=== PATIENT | male | born 1985 | race Two or more races ===

== ENCOUNTER 2021-02-13 07:06 | Inpatient (IN) | payer MEDICAID, OTHER ==
[~2021-02-13] VITALS: Ht 175.3 cm; Wt 96.0 kg
[2021-02-13 10:20] LABS: Calcium 8.2 mg/dL (8.5-10.1)
[2021-02-13 10:27] LABS: Albumin 3.3 g/dL (3.4-5.0); BUN/Creatinine Ratio 9.2; Bilirubin, Total 0.5 mg/dL (0.2-1.0); Total Protein 7.1 g/dL (6.4-8.2)
[2021-02-13 10:30] LABS: Basophils # (auto) 0 10 ^3/uL (0-0.2); Basophils % (auto) 0.3 % (0.0-2.0); Eosinophils # (auto) 0 10 ^3/uL (0-0.8); Hematocrit 44.3 % (41.0-53.0); Hemoglobin 14.8 g/dL (13.5-17.5); Lymphocytes # (auto) 0.7 10 ^3/uL (0.4-5.4); Lymphocytes % (auto) 11.6 % (10.0-50.0); Mean Corpuscular Hemoglobin 29.8 pg (28.0-32.0); Mean Corpuscular Hgb Conc. 33.3 g/dL (32.0-36.0); Mean Corpuscular Volume 89.4 fL (80.0-100.0); Monocytes # (auto) 0.3 10 ^3/uL (0-1.3); Monocytes % (auto) 4.5 % (0.0-12.0); Neutrophils # (auto) 4.9 10 ^3/uL (1.6-8.6); Neutrophils % (auto) 83.6 % (37.0-80.0); Red Blood Cells 4.95 10^6/uL (4.5-5.90); Red Cell Distribution Width 12.3 % (11.8-14.3); White Blood Cell 5.9 10^3/uL (4.4-10.8)
[2021-02-13] MEDS ORDERED: cefTRIAXone 1GM/50ML D5W 50 ML IV ONE ×2 (10:45→12:00)
[2021-02-13] MEDS ORDERED: AZITHROMYCIN 500MG/ 250ML 250 ML IV ONE (10:45)
[2021-02-13] MEDS ORDERED: DexAMETHasone SOD PHOS 10MG/1ML VIAL INJ IV ONE (10:45)
[2021-02-13] MEDS ORDERED: ACETAMINOPHEN 500 MG TAB PO PRN (11:45)
[2021-02-13] MEDS ORDERED: NITROGLYCERIN 0.4 MG SL TAB SL PRN (11:45)
[2021-02-13] MEDS ORDERED: ALUM & MAG HYDROX-SIMETH LIQ(MAALOX) 30 ML PO PRN (11:45)
[2021-02-13] MEDS ORDERED: ALBUTEROL SULF HFA 90MCG INH 200DOSE IN PRN (11:45)
[2021-02-13] MEDS ORDERED: HYDROcodone-ACET 5/325MG TAB PO PRN (11:45)
[2021-02-13] MEDS ORDERED: ONDANSETRON HCL 4 MG/2 ML VIAL IV PRN (11:45)
[2021-02-13] MEDS ORDERED: LORazepam 0.5 MG TAB PO PRN (11:45)
[2021-02-13] MEDS ORDERED: DOCUSATE SOD 100 MG CAP PO PRN (11:45)
[2021-02-13] MEDS ORDERED: MORPHINE SULFATE INJECTION 2 MG/ML SYRG IV PRN ×2 (11:45)
[2021-02-13] MEDS ORDERED: IOHEXOL 350 MG/ML 100ML IJ ONE (11:47)
[2021-02-13 14:09] VITALS: BP 115/75
[2021-02-13] MEDS: SODIUM CHLORIDE 0.9% 1,000 ML IV SCH (15:11)
[2021-02-13 16:30] VITALS: BP 114/66
[2021-02-13 20:00] VITALS: BP 108/70
[2021-02-13] MEDS: FAMOTIDINE (10MG/ML) 2ML VL IV SCH (21:19)
[2021-02-13] MEDS: ENOXAPARIN SOD 40 MG/0.4 ML SYRINGE SC SCH (21:19)
[2021-02-13 22:00] VITALS: BP 108/70
[2021-02-13] MEDS ORDERED: BUDESONIDE (INHALATION) 180 MCG IH IN SCH (22:00)
[2021-02-14] MEDS: SODIUM CHLORIDE 0.9% 1,000 ML IV SCH (05:25)
[2021-02-14 05:30] VITALS: BP 103/65
[2021-02-14 06:28] LABS: Basophils # (auto) 0 10 ^3/uL (0-0.2); Eosinophils # (auto) 0 10 ^3/uL (0-0.8); Eosinophils % (auto) 0.1 % (0.0-7.0); Hematocrit 43.1 % (41.0-53.0); Hemoglobin 14.4 g/dL (13.5-17.5); Lymphocytes # (auto) 0.6 10 ^3/uL (0.4-5.4); Lymphocytes % (auto) 15.4 % (10.0-50.0); Mean Corpuscular Hemoglobin 29.8 pg (28.0-32.0); Mean Corpuscular Hgb Conc. 33.4 g/dL (32.0-36.0); Mean Corpuscular Volume 89.2 fL (80.0-100.0); Monocytes # (auto) 0.3 10 ^3/uL (0-1.3); Neutrophils # (auto) 2.8 10 ^3/uL (1.6-8.6); Neutrophils % (auto) 76.5 % (37.0-80.0); Nucleated Red Blood Cells % 0.1 %; Red Blood Cells 4.83 10^6/uL (4.5-5.90); Red Cell Distribution Width 12.5 % (11.8-14.3); White Blood Cell 3.7 10^3/uL (4.4-10.8)
[2021-02-14 06:47] LABS: Calcium 8.2 mg/dL (8.5-10.1); Potassium 4.3 mmol/L (3.5-5.1)
[2021-02-14 06:50] LABS: BUN/Creatinine Ratio 14.7
[2021-02-14 06:52] LABS: Bilirubin, Total 0.5 mg/dL (0.2-1.0); Total Protein 6.5 g/dL (6.4-8.2)
[2021-02-14 09:00] VITALS: BP 105/68
[2021-02-14] MEDS: DexAMETHasone SOD PHOS 10MG/1ML VIAL INJ IV SCH (11:16)
[2021-02-14] MEDS: CHOLECALCIFEROL (VITD3) 2,000 UNIT CAP/TAB PO SCH (11:16)
[2021-02-14] MEDS: FAMOTIDINE (10MG/ML) 2ML VL IV SCH ×2 (11:16→21:12)
[2021-02-14] MEDS: AZITHROMYCIN 500MG/ 250ML 250 ML IV SCH (11:16)
[2021-02-14] MEDS: ZINC SULFATE 220mg CAP or TAB PO SCH (11:17)
[2021-02-14] MEDS: ENOXAPARIN SOD 40 MG/0.4 ML SYRINGE SC SCH ×2 (11:22→21:12)
[2021-02-14] MEDS ORDERED: REMDESIVIR PER PHARMACY 0 ML IV SCH (11:30)
[2021-02-14] MEDS ORDERED: BUDESONIDE (INHALATION) 0.5 MG/2 ML NEB NEB ONE (11:30)
[2021-02-14] MEDS: ASCORBIC ACID 1,000 MG TAB PO SCH (11:34)
[2021-02-14 13:00] VITALS: BP 145/74
[2021-02-14] MEDS ORDERED: REMDESIVIR 200 MG in NS 210ml LOADING DOSE ADULT IV ONE (15:00)
[2021-02-14 17:00] VITALS: BP 110/71
[2021-02-14 17:12] LABS: Urine Bacteria NONE SEEN /hpf (None Seen); Urine Blood Negative /uL (Negative); Urine WBC 1 /hpf (0 - 3)
[2021-02-14] MEDS ORDERED: BUDESONIDE (INHALATION) 0.5 MG/2 ML NEB NEB SCH (22:00)
[2021-02-14 22:02] VITALS: BP 106/69
[2021-02-15 05:00] VITALS: BP 109/69
[2021-02-15 07:46] LABS: Basophils # (auto) 0 10 ^3/uL (0-0.2); Basophils % (auto) 0.1 % (0.0-2.0); Eosinophils # (auto) 0 10 ^3/uL (0-0.8); Hematocrit 40.8 % (41.0-53.0); Hemoglobin 13.9 g/dL (13.5-17.5); Lymphocytes # (auto) 1.1 10 ^3/uL (0.4-5.4); Lymphocytes % (auto) 11.9 % (10.0-50.0); Mean Corpuscular Hemoglobin 30.4 pg (28.0-32.0); Mean Corpuscular Hgb Conc. 34.1 g/dL (32.0-36.0); Mean Corpuscular Volume 89.3 fL (80.0-100.0); Monocytes # (auto) 0.7 10 ^3/uL (0-1.3); Neutrophils # (auto) 7.6 10 ^3/uL (1.6-8.6); Nucleated Red Blood Cells % 0.1 %; Red Blood Cells 4.57 10^6/uL (4.5-5.90); Red Cell Distribution Width 12.6 % (11.8-14.3); White Blood Cell 9.4 10^3/uL (4.4-10.8)
[2021-02-15 08:18] LABS: Potassium 4.5 mmol/L (3.5-5.1)
[2021-02-15 08:25] LABS: Albumin 3.1 g/dL (3.4-5.0); BUN/Creatinine Ratio 17.4; Bilirubin, Total 0.5 mg/dL (0.2-1.0); Calcium 8.4 mg/dL (8.5-10.1); Total Protein 6.7 g/dL (6.4-8.2)
[2021-02-15 09:00] VITALS: BP 108/77
[2021-02-15] MEDS ORDERED: SALINE 0.65 % NASAL SPRAY 45ML BOTTLE EACHNOSTRI ONE (10:45)
[2021-02-15] MEDS: AZITHROMYCIN 500MG/ 250ML 250 ML IV SCH (10:58)
[2021-02-15] MEDS: DexAMETHasone SOD PHOS 10MG/1ML VIAL INJ IV SCH (10:58)
[2021-02-15] MEDS: CHOLECALCIFEROL (VITD3) 2,000 UNIT CAP/TAB PO SCH (10:59)
[2021-02-15] MEDS: ASCORBIC ACID 1,000 MG TAB PO SCH (10:59)
[2021-02-15] MEDS: ENOXAPARIN SOD 40 MG/0.4 ML SYRINGE SC SCH ×2 (11:00→21:41)
[2021-02-15] MEDS: ZINC SULFATE 220mg CAP or TAB PO SCH (11:00)
[2021-02-15 13:00] VITALS: BP 128/71
[2021-02-15] MEDS: SALINE 0.65 % NASAL SPRAY 45ML BOTTLE EACHNOSTRI SCH ×3 (14:09→21:41)
[2021-02-15] MEDS: REMDESIVIR 100mg 100 MG in SODIUM CHL 0.9% 230 ML IV SCH (15:17)
[2021-02-15 17:00] VITALS: BP 111/68
[2021-02-15] MEDS: BUDESONIDE (INHALATION) 180 MCG IH IN SCH (19:50)
[2021-02-15 21:30] VITALS: BP 122/76
[2021-02-15] MEDS ORDERED: BUDESONIDE (INHALATION) 0.5 MG/2 ML NEB NEB SCH (22:00)
[2021-02-16] VITALS (7 sets, daily range): BP systolic 104–115; BP diastolic 64–75
[2021-02-16] MEDS: SALINE 0.65 % NASAL SPRAY 45ML BOTTLE EACHNOSTRI SCH ×4 (05:20→22:29)
[2021-02-16 07:31] LABS: Potassium 4.4 mmol/L (3.5-5.1)
[2021-02-16 07:52] LABS: Albumin 3.2 g/dL (3.4-5.0); BUN/Creatinine Ratio 21.8; Bilirubin, Total 0.5 mg/dL (0.2-1.0); Calcium 8.6 mg/dL (8.5-10.1); Total Protein 6.6 g/dL (6.4-8.2)
[2021-02-16] MEDS: DexAMETHasone SOD PHOS 10MG/1ML VIAL INJ IV SCH (09:52)
[2021-02-16] MEDS: CHOLECALCIFEROL (VITD3) 2,000 UNIT CAP/TAB PO SCH (09:53)
[2021-02-16] MEDS: ENOXAPARIN SOD 40 MG/0.4 ML SYRINGE SC SCH ×2 (09:53→22:30)
[2021-02-16] MEDS: ASCORBIC ACID 1,000 MG TAB PO SCH (09:53)
[2021-02-16] MEDS: AZITHROMYCIN 500MG/ 250ML 250 ML IV SCH (09:53)
[2021-02-16] MEDS: ZINC SULFATE 220mg CAP or TAB PO SCH (09:53)
[2021-02-16] MEDS: FAMOTIDINE 20 MG TAB PO SCH (09:54)
[2021-02-16] MEDS: BUDESONIDE (INHALATION) 180 MCG IH IN SCH ×2 (15:32→22:00)
[2021-02-16] MEDS: REMDESIVIR 100mg 100 MG in SODIUM CHL 0.9% 230 ML IV SCH (18:36)
[2021-02-17 05:41] VITALS: BP 110/64
[2021-02-17] MEDS: SALINE 0.65 % NASAL SPRAY 45ML BOTTLE EACHNOSTRI SCH ×4 (06:08→22:37)
[2021-02-17] MEDS: BUDESONIDE (INHALATION) 180 MCG IH IN SCH ×2 (06:18→19:28)
[2021-02-17 07:17] LABS: Albumin 3.1 g/dL (3.4-5.0); BUN/Creatinine Ratio 21.3; Calcium 8.5 mg/dL (8.5-10.1); Potassium 4.3 mmol/L (3.5-5.1)
[2021-02-17 07:25] LABS: Basophils # (auto) 0 10 ^3/uL (0-0.2); Basophils % (auto) 0.1 % (0.0-2.0); Eosinophils # (auto) 0 10 ^3/uL (0-0.8); Eosinophils % (auto) 0.1 % (0.0-7.0); Hematocrit 43.7 % (41.0-53.0); Hemoglobin 14.8 g/dL (13.5-17.5); Lymphocytes # (auto) 1.4 10 ^3/uL (0.4-5.4); Lymphocytes % (auto) 20.4 % (10.0-50.0); Mean Corpuscular Hemoglobin 29.8 pg (28.0-32.0); Mean Corpuscular Hgb Conc. 33.8 g/dL (32.0-36.0); Mean Corpuscular Volume 88.2 fL (80.0-100.0); Monocytes # (auto) 0.8 10 ^3/uL (0-1.3); Monocytes % (auto) 12.3 % (0.0-12.0); Neutrophils # (auto) 4.5 10 ^3/uL (1.6-8.6); Neutrophils % (auto) 67.1 % (37.0-80.0); Nucleated Red Blood Cells % 0.2 %; Red Blood Cells 4.95 10^6/uL (4.5-5.90); Red Cell Distribution Width 12.4 % (11.8-14.3); White Blood Cell 6.7 10^3/uL (4.4-10.8)
[2021-02-17 08:15] LABS: Bilirubin, Total 0.6 mg/dL (0.2-1.0); Total Protein 6.5 g/dL (6.4-8.2)
[2021-02-17 08:51] VITALS: BP 111/64
[2021-02-17] MEDS: DexAMETHasone SOD PHOS 10MG/1ML VIAL INJ IV SCH (08:56)
[2021-02-17] MEDS: ENOXAPARIN SOD 40 MG/0.4 ML SYRINGE SC SCH ×2 (08:56→22:37)
[2021-02-17] MEDS: ASCORBIC ACID 1,000 MG TAB PO SCH (08:57)
[2021-02-17] MEDS: CHOLECALCIFEROL (VITD3) 2,000 UNIT CAP/TAB PO SCH (08:57)
[2021-02-17] MEDS: FAMOTIDINE 20 MG TAB PO SCH (08:57)
[2021-02-17] MEDS: AZITHROMYCIN 250 MG TAB PO SCH (08:57)
[2021-02-17] MEDS: ZINC SULFATE 220mg CAP or TAB PO SCH (08:58)
[2021-02-17] MEDS ORDERED: FUROSEMIDE 20 MG/2 ML VIAL IV ONE (12:15)
[2021-02-17] MEDS ORDERED: POTASSIUM CHL 20 Meq TABLET PO ONE (12:15)
[2021-02-17 13:00] VITALS: BP 112/70
[2021-02-17] MEDS: REMDESIVIR 100mg 100 MG in SODIUM CHL 0.9% 230 ML IV SCH (15:37)
[2021-02-17 17:00] VITALS: BP 105/61
[2021-02-17 22:41] VITALS: BP 105/69
[2021-02-18 05:12] VITALS: BP 98/57
[2021-02-18] MEDS: SALINE 0.65 % NASAL SPRAY 45ML BOTTLE EACHNOSTRI SCH ×4 (06:12→21:28)
[2021-02-18 07:34] LABS: Potassium 4.7 mmol/L (3.5-5.1)
[2021-02-18 07:42] LABS: Albumin 3.3 g/dL (3.4-5.0); BUN/Creatinine Ratio 20.8; Bilirubin, Total 0.5 mg/dL (0.2-1.0); Calcium 8.6 mg/dL (8.5-10.1); Total Protein 6.8 g/dL (6.4-8.2)
[2021-02-18 09:00] VITALS: BP 96/65
[2021-02-18] MEDS: BUDESONIDE (INHALATION) 180 MCG IH IN SCH ×2 (09:23→18:25)
[2021-02-18] MEDS: CHOLECALCIFEROL (VITD3) 2,000 UNIT CAP/TAB PO SCH (10:00)
[2021-02-18] MEDS: ENOXAPARIN SOD 40 MG/0.4 ML SYRINGE SC SCH ×2 (10:00→21:29)
[2021-02-18] MEDS: ASCORBIC ACID 1,000 MG TAB PO SCH (10:00)
[2021-02-18] MEDS: ZINC SULFATE 220mg CAP or TAB PO SCH (10:00)
[2021-02-18] MEDS: AZITHROMYCIN 250 MG TAB PO SCH (10:00)
[2021-02-18] MEDS: FAMOTIDINE 20 MG TAB PO SCH (10:00)
[2021-02-18] MEDS: DexAMETHasone SOD PHOS 10MG/1ML VIAL INJ IV SCH (10:00)
[2021-02-18 13:00] VITALS: BP 104/64
[2021-02-18] MEDS: REMDESIVIR 100mg 100 MG in SODIUM CHL 0.9% 230 ML IV SCH (14:37)
[2021-02-18 15:02] VITALS: BP 112/70
[2021-02-18 17:00] VITALS: BP 114/65
[2021-02-18 22:00] VITALS: BP 102/64
[2021-02-19 05:00] VITALS: BP 102/59
[2021-02-19] MEDS: SALINE 0.65 % NASAL SPRAY 45ML BOTTLE EACHNOSTRI SCH ×2 (05:29→12:26)
[2021-02-19] MEDS: BUDESONIDE (INHALATION) 180 MCG IH IN SCH (07:13)
[2021-02-19 09:00] VITALS: BP 99/60
[2021-02-19] MEDS: CHOLECALCIFEROL (VITD3) 2,000 UNIT CAP/TAB PO SCH (10:00)
[2021-02-19] MEDS: ASCORBIC ACID 1,000 MG TAB PO SCH (10:00)
[2021-02-19] MEDS: ZINC SULFATE 220mg CAP or TAB PO SCH (10:00)
[2021-02-19] MEDS: AZITHROMYCIN 250 MG TAB PO SCH (10:00)
[2021-02-19] MEDS: ENOXAPARIN SOD 40 MG/0.4 ML SYRINGE SC SCH (10:00)
[2021-02-19] MEDS: DexAMETHasone SOD PHOS 10MG/1ML VIAL INJ IV SCH (10:00)
[2021-02-19] MEDS: FAMOTIDINE 20 MG TAB PO SCH (10:00)
[2021-02-19 11:50] VITALS: BP 99/60
[2021-02-19 13:00] VITALS: BP 131/65
[2021-02-19 17:00] VITALS: BP 131/74
== END 2021-02-19 17:20 | disposition home or self-care (01) | DRG 720 ==
LOC: ER 07:06 → TELE 11:39 → TELE-EAST 14:14
PROVIDERS: ADMIT Family Medicine; ATTEND Internal Medicine
PROC: XW033E5 Introduction of Remdesivir Anti-infective into Peripheral Vein, Percutaneous Approach, New Technology Group 5 (ICD-10-PCS; principal; 2021-02-14)
DX: A41.89 Other specified sepsis (principal); J96.01 Acute respiratory failure with hypoxia; J12.82 Pneumonia due to coronavirus disease 2019; U07.1 COVID-19; E44.1 Mild protein-calorie malnutrition; D89.839 Cytokine release syndrome, grade unspecified; E66.9 Obesity, unspecified; Z79.82 Long term (current) use of aspirin; Z68.32 Body mass index [BMI] 32.0-32.9, adult; R74.01 Elevation of levels of liver transaminase levels
CPT/HCPCS: 36415; 36600; 71045; 71275; 80053; 81001; 82306; 82728; 82805; 83605; 83615; 83735; 85025; 85379; 86141; 87040; 87426; 93005; 94640; 96365; 96367; 96375; 99291; G0378; J0696; J1100; J3490